=== PATIENT | male | born 1965 | race African-American/Black ===

== ENCOUNTER 2017-02-23 19:04 | Emergency (ER) | payer SELFPAY ==
[2017-02-23] MEDS ORDERED: CEPHALEXIN 250 MG CAPSULE PO STA (19:59)
[2017-02-23] MEDS ORDERED: HYDROcod/ACET 5/325 Prepack 6 PO STA (19:59)
[2017-02-23] MEDS ORDERED: HYDROcod/ACET 5/325 Prepack 6 PO ONE (20:02)
[2017-02-23] MEDS ORDERED: CEPHALEXIN 250 MG CAPSULE PO ONE (20:02)
== END 2017-02-23 20:14 | disposition home or self-care (01) ==
DX: L03.012 Cellulitis of left finger (principal); R03.0 Elevated blood-pressure reading, without diagnosis of hypertension
CPT/HCPCS: 10160; 99283; A9270